=== PATIENT | female | born 1965 | race African-American/Black ===

== ENCOUNTER → 2023-09-16 12:04 | Outpatient (CLI) | payer OTHER, SELFPAY ==
--- NOTE | ~2023-09-16 | MR_ITS ---
EXAMINATION: MR wrist LT wo con DATE: 09/16/2023 12:51 INDICATION: Left wrist pain TECHNIQUE: Magnetic resonance imaging (MRI) of the left wrist was performed without intravenous contr ast. Sequences performed include axial PD-weighted FSE and PD-weighted FS FSE, coronal PD-weighted FS FSE and T1-weighted SE, and sagittal PD-weighted FS FSE and PD-weighted FSE. COMPARISON: Left wrist radiographs dated 09/08/2023 FINDINGS: Intrinsic ligaments: The scapholunate and lunotriquetral ligaments are normal. Triangular fibrocartilage complex (TFCC): There is increased signal at the foveal and ulnar styloid attachments of the scapholunate ligament as well as involving the ulnar side of the volar radioulnar ligament consistent with partial tear. The central fibrocartilaginous disc as well as the radial attachment and volar radioulnar ligament are no rmal. There is also increased signal at the distal aspect of the ulnar triquetral ligament with mild cystic change at its triquetral attachment suggesting likely chronic partial tear. The extensor carpi ulnaris tendon sheath is normal. Extensor wrist: Extensor tendons of the wrist are normal. No tenosynovitis. There is a 5 x 6 x 3 mm ganglion cyst kassi ng the distal aspect of the extensor carpi radialis brevis tendon. Flexor wrist: The flexor tendons of the wrist are normal. No abnormality in the carpal tunnel with normal median n erve. Guyon's canal: Guyon's canal including the ulnar nerve and artery are normal. Bones/other: Bone alignment is normal. No fracture, avascular necrosis or pathologic marrow replacing process. Mil d osteoarthritis at the triscaphe and first carpal metacarpal joints. There is an additional ganglion cyst extending along the intrinsic ligaments at the dorsal aspect of the carpus likely arising from the midcarpal joint which measures 13 mm in length and 3 x 3 mm in maximal orthogonal dimensions. IMPRESSION: 1. 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 No scaphoid fracture or other acute osseou s abnormality. 2. Partial tear at the ulnar side of the triangular fibrocartilage complex involving the ulnar styloi d, foveal attachments as well as the ulnar side of the dorsal radioulnar ligament with additional lik lloyd chronic partial tear at the triquetral side of the ulnar triquetral ligament. Reviewed, dictated and finalized at location L. [employer] IMPRESSION: 1. 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 No scaphoid fracture or other acute osseous abnormality. 2. Partial tear at the ulnar side of the triangular fibrocartilage complex invo lving the ulnar styloid, foveal attachments as well as the ulnar side of the do rsal radioulnar ligament with additional likely chronic partial tear at the tri quetral side of the ulnar triquetral ligament.
== END ==
PROVIDERS: PCP Orthopaedic Surgery; Visit Provider Orthopaedic Surgery
DX: M19.032 Primary osteoarthritis, left wrist (principal); S63.592A Other specified sprain of left wrist, initial encounter; X58.XXXA Exposure to other specified factors, initial encounter
CPT/HCPCS: 73221